=== PATIENT | male | born 1940 | race Caucasian/White ===

== ENCOUNTER 2017-10-09 10:45 | Emergency (ER) | payer OTHER ==
[~2017-10-09] VITALS: Ht 170.2 cm; Wt 84.0 kg
[2017-10-09 10:46] VITALS: BP 136/71; PULSE 97; RESP 18; TEMP 98.2; O2SAT 98
[2017-10-09] MEDS ORDERED: METF500T PO (11:07)
[2017-10-09] MEDS ORDERED: OMEP20TA93 PO (11:07)
[2017-10-09] MEDS ORDERED: LOVA20TA PO (11:07)
[2017-10-09] MEDS ORDERED: ASPI81CH6 CHEW (11:07)
[2017-10-09] MEDS ORDERED: CARV6.252 PO (11:07)
[2017-10-09] MEDS ORDERED: LISI10TA3 PO (11:07)
[2017-10-09] MEDS ORDERED: DONE10TA7 PO (11:07)
[2017-10-09] MEDS ORDERED: CLAR10CA3 PO (11:07)
[2017-10-09] MEDS ORDERED: GLIM2TAB PO (11:07)
--- NOTE | 2017-10-09 11:11 | PD ---
HPI Chief Complaint: Cold / Flu Symptoms Time Seen by Provider: 10:51 Travel History International Travel<30 days: No Contact w/Intl Traveler<30days: No Traveled to known affect area: No History of Present Illness HPI The patient is a 77-year-old male who presents emergency department for cough and cold symptoms of 3 days' duration. The patient notes nasal congestion, sore throat, and productive cough producing white sputum, nausea, vomiting, and diarrhea. He also complains of lower intermittent abdominal cramping. The patient called his primary physician earlier today, Dr. Bustamante, was referred to the emergency department by their nurse. He is unsure if he has had a fever, does note intermittent chills and sweats. The patient recently finished azithromycin for an upper respiratory infection. He denies any chest pain. The patient is a somewhat limited historian with a history of dementia, the does provide some of the history. PFSH Past Medical History Cerebrovascular Accident: Yes Dementia: Yes Diabetes: Yes Patient Takes Glucophage: Yes GERD: Yes Hypertension: Yes Triglycerides - High: Yes Past Surgical History Narrative Surgical right inguinal hernia repair Tonsillectomy: Yes Other Surgery: Yes (prostate, hernia, penile implant) Social History Alcohol Use: No Tobacco Use: No Substance Use: No Allergies-Medications (Allergen,Severity, Reaction): Coded Allergies: Penicillins (Verified Allergy, Intermediate, 10/09/17) Reported Meds & Prescriptions Reported Meds & Active Scripts Active Reported Donepezil 10 Mg Tab 10 Mg PO HS Metformin (Metformin HCl) 500 Mg Tab 500 Mg PO BIDPC Omeprazole 20 Mg Tab 20 Mg PO DAILY Glimepiride 2 Mg Tab 2 Mg PO DAILY Take with breakfast or first main meal Lisinopril 10 Mg Tab 10 Mg PO DAILY Claritin (Loratadine) 10 Mg Cap 10 Mg PO DAILY Carvedilol 6.25 Mg Tab 6.25 Mg PO BID Aspirin Low Dose (Aspirin) 81 Mg Chew 81 Mg CHEW DAILY Lovastatin 20 Mg Tab 20 Mg PO DAILY Review of Systems Except as stated in HPI: all other systems reviewed are Neg General / Constitutional: Positive: Chills, No: Fever HENT: Positive: Sore Throat, Congestion Cardiovascular: No: Chest Pain or Discomfort Respiratory: Positive: Cough, No: Shortness of Breath Gastrointestinal: Positive: Nausea, Vomiting, Diarrhea, Abdominal Pain Genitourinary: No: Dysuria Musculoskeletal: No: Myalgias Physical Exam Narrative GENERAL: Awake, alert, pleasant 77-year-old male who appears his stated age and is in no acute respiratory distress. SKIN: Focused skin assessment warm/dry. HEAD: Atraumatic. Normocephalic. EYES: Pupils equal and round. No scleral icterus. No injection or drainage. ENT: No nasal bleeding or discharge. Mucous membranes pink and moist. NECK: Trachea midline. No JVD. CARDIOVASCULAR: Regular rate and rhythm. No murmur appreciated. RESPIRATORY: No accessory muscle use. Few scattered wheezes. GASTROINTESTINAL: Abdomen soft, minimal lower abdominal tenderness. No guarding or rigidity. MUSCULOSKELETAL: No obvious deformities. No clubbing. No cyanosis. No edema. NEUROLOGICAL: Awake and alert. No obvious cranial nerve deficits. Motor grossly within normal limits. Normal speech. PSYCHIATRIC: Appropriate mood and affect; insight and judgment normal. Data Data Last Documented VS Vital Signs Date Time Temp Pulse Resp B/P (MAP) Pulse Ox O2 Delivery O2 Flow Rate FiO2 10/09/17 10:46 98.2 97 18 136/71 (92) 98 Room Air Orders Orders Complete Blood Count With Diff (10/09/17 10:59) Comprehensive Metabolic Panel (10/09/17 10:59) Lactic Acid (10/09/17 10:59) Chest, Single Ap (10/09/17 ) Influenzae A/B Antigen (10/09/17 10:59) Urinalysis - C+S If Indicated (10/09/17 10:59) Ondansetron Inj (Zofran Inj) (10/09/17 11:15) Sodium Chlorid 0.9% 500 Ml Inj (Ns 500 M (10/09/17 11:15) Labs Laboratory Tests Test 10/09/17 11:20 10/09/17 11:30 White Blood Count 10.3 TH/MM3 Red Blood Count 4.38 MIL/MM3 Hemoglobin 13.0 GM/DL Hematocrit 38.0 % Mean Corpuscular Volume 86.7 FL Mean Corpuscular Hemoglobin 29.6 PG Mean Corpuscular Hemoglobin Concent 34.2 % Red Cell Distribution Width 13.8 % Platelet Count 169 TH/MM3 Mean Platelet Volume 8.8 FL Neutrophils (%) (Auto) 89.7 % Lymphocytes (%) (Auto) 1.4 % Monocytes (%) (Auto) 5.3 % Eosinophils (%) (Auto) 3.4 % Basophils (%) (Auto) 0.2 % Neutrophils # (Auto) 9.2 TH/MM3 Lymphocytes # (Auto) 0.1 TH/MM3 Monocytes # (Auto) 0.5 TH/MM3 Eosinophils # (Auto) 0.4 TH/MM3 Basophils # (Auto) 0.0 TH/MM3 CBC Comment DIFF FINAL Differential Comment Blood Urea Nitrogen 38 MG/DL Creatinine 2.78 MG/DL Random Glucose 241 MG/DL Total Protein 7.5 GM/DL Albumin 3.9 GM/DL Calcium Level 9.2 MG/DL Alkaline Phosphatase 109 U/L Aspartate Amino Transf (AST/SGOT) 19 U/L Alanine Aminotransferase (ALT/SGPT) 18 U/L Total Bilirubin 0.6 MG/DL Sodium Level 137 MEQ/L Potassium Level 4.7 MEQ/L Chloride Level 103 MEQ/L Carbon Dioxide Level 26.3 MEQ/L Anion Gap 8 MEQ/L Estimat Glomerular Filtration Rate 22 ML/MIN Lactic Acid Level 1.2 mmol/L Urine Color YELLOW Urine Turbidity CLEAR Urine pH 5.0 Urine Specific [place] 1.014 Urine Protein 30 mg/dL Urine Glucose (UA) 300 mg/dL Urine Ketones NEG mg/dL Urine Occult Blood NEG Urine Nitrite NEG Urine Bilirubin NEG Urine Urobilinogen LESS THAN 2.0 MG/DL Urine Leukocyte Esterase NEG Urine RBC 1 /hpf Urine WBC 1 /hpf Urine Squamous Epithelial Cells <1 /hpf Microscopic Urinalysis Comment CULT NOT INDICATED MDM Medical Decision Making Medical Screen Exam Complete: Yes Emergency Medical Condition: Yes Medical Record Reviewed: Yes Interpretation(s) Last Impressions Chest X-Ray 10/09/17 0000 Signed Impressions: Service Date/Time: Monday, October 09, 2017 11:31 - CONCLUSION: No focal infiltrates seen. Frantz Duggan MD Laboratory Tests Test 10/09/17 11:20 10/09/17 11:30 White Blood Count 10.3 TH/MM3 Red Blood Count 4.38 MIL/MM3 Hemoglobin 13.0 GM/DL Hematocrit 38.0 % Mean Corpuscular Volume 86.7 FL Mean Corpuscular Hemoglobin 29.6 PG Mean Corpuscular Hemoglobin Concent 34.2 % Red Cell Distribution Width 13.8 % Platelet Count 169 TH/MM3 Mean Platelet Volume 8.8 FL Neutrophils (%) (Auto) 89.7 % Lymphocytes (%) (Auto) 1.4 % Monocytes (%) (Auto) 5.3 % Eosinophils (%) (Auto) 3.4 % Basophils (%) (Auto) 0.2 % Neutrophils # (Auto) 9.2 TH/MM3 Lymphocytes # (Auto) 0.1 TH/MM3 Monocytes # (Auto) 0.5 TH/MM3 Eosinophils # (Auto) 0.4 TH/MM3 Basophils # (Auto) 0.0 TH/MM3 CBC Comment DIFF FINAL Differential Comment Blood Urea Nitrogen 38 MG/DL Creatinine 2.78 MG/DL Random Glucose 241 MG/DL Total Protein 7.5 GM/DL Albumin 3.9 GM/DL Calcium Level 9.2 MG/DL Alkaline Phosphatase 109 U/L Aspartate Amino Transf (AST/SGOT) 19 U/L Alanine Aminotransferase (ALT/SGPT) 18 U/L Total Bilirubin 0.6 MG/DL Sodium Level 137 MEQ/L Potassium Level 4.7 MEQ/L Chloride Level 103 MEQ/L Carbon Dioxide Level 26.3 MEQ/L Anion Gap 8 MEQ/L Estimat Glomerular Filtration Rate 22 ML/MIN Lactic Acid Level 1.2 mmol/L Urine Color YELLOW Urine Turbidity CLEAR Urine pH 5.0 Urine Specific [place] 1.014 Urine Protein 30 mg/dL Urine Glucose (UA) 300 mg/dL Urine Ketones NEG mg/dL Urine Occult Blood NEG Urine Nitrite NEG Urine Bilirubin NEG Urine Urobilinogen LESS THAN 2.0 MG/DL Urine Leukocyte Esterase NEG Urine RBC 1 /hpf Urine WBC 1 /hpf Urine Squamous Epithelial Cells <1 /hpf Microscopic Urinalysis Comment CULT NOT INDICATED Differential Diagnosis Differential diagnosis includes influenza, viral syndrome, pneumonia, bronchitis , gastroenteritis, diverticulitis, pyelonephritis, complicated UTI, dehydration , electrolyte abnormality. Narrative Course IV was established, labs are drawn and sent, and the patient was placed on cardiac telemetry monitoring and continuous pulse oximetry monitoring. The patient received Zofran and 500 cc normal saline. Influenza screen was sent to lab. Chest x-ray was obtained. Chest x-rays negative. Influenza screen is negative. White count is normal. Creatinine was 2.78, do not have a baseline for the patient's creatinine. I discussed the creatinine with the he does state the patient has a history of renal failure, does not know the baseline creatinine. Her nausea did improve, the patient was given a by mouth challenge with warren kar and another 500 cc bolus. Patient tolerates warren kar he will be discharged home. Diagnosis Primary Impression: Gastroenteritis Additional Impression: Chronic kidney disease Qualified Codes: N18.9 - Chronic kidney disease, unspecified Patient Instructions: General Instructions Additional Instructions: Please provide the patient a copy of his labs at discharge. Clear liquid diet and advance as tolerated. Follow-up with her primary physician. Return if symptoms worsen or progress. Med/Other Pt SpecificInfo: Prescription(s) given Scripts Ondansetron Odt (Zofran Odt) 4 Mg Tab 4 MG SL Q6HR Y for Nausea/Vomiting, #10 TAB 0 Refills Prov: Rony Gregory MD 10/09/17 Disposition: DISCHARGE HOME Condition: Stable Rony Gregory MD Oct 09, 2017 11:11
[2017-10-09] MEDS ORDERED: SODIUM CHLORID 0.9% 500 ML INJ 500 ML IV ONE ×2 (11:15→13:15)
[2017-10-09] MEDS ORDERED: ONDANSETRON HCL 4 MG/2 ML VIAL IV PUSH ONE (11:15)
[2017-10-09 11:38] LABS: AUTOMATED NEUTROPHIL # 9.2 TH/MM3 (1.8-7.7); BASOPHIL % 0.2 % (0.0-2.0); EOSINOPHIL # 0.4 TH/MM3 (0-0.4); EOSINOPHIL % 3.4 % (0.0-4.0); LYMPH % 1.4 % (9.0-44.0); LYMPHOCYTE # 0.1 TH/MM3 (1.0-4.8); MEAN CELL VOLUME 86.7 FL (80.0-100.0); MEAN CORPUSCULAR HEMOGLOBIN 29.6 PG (27.0-34.0); MEAN CORPUSCULAR HGB CONC 34.2 % (32.0-36.0); MEAN PLATELET VOLUME 8.8 FL (7.0-11.0); MONO % 5.3 % (0.0-8.0); MONOCYTE # 0.5 TH/MM3 (0-0.9); NEUT % 89.7 % (16.0-70.0); PLATELET COUNT 169 TH/MM3 (150-450); RED BLOOD COUNT 4.38 MIL/MM3 (4.50-5.90); RED CELL DISTRIBUTION WIDTH 13.8 % (11.6-17.2); WHITE BLOOD COUNT 10.3 TH/MM3 (4.0-11.0)
[2017-10-09 11:52] LABS: BILIRUBIN, URINE NEG (NEG); BLOOD, URINE NEG (NEG); GLUCOSE,URINE 300 mg/dL (NEG); KETONE, URINE NEG (NEG); NITRITE,URINE NEG (NEG); SQUAMOUS EPITHELIAL CELL URINE <1 /hpf (0-5); URINE COLOR YELLOW (YELLW/STRAW); URINE LEUKOCYTE ESTERASE NEG (NEG)
[2017-10-09 12:02] LABS: ALBUMIN 3.9 GM/DL (3.4-5.0); AST (GOT) 19 U/L (15-37); BICARBONATE 26.3 MEQ/L (21.0-32.0); BLOOD UREA NITROGEN 38 MG/DL (7-18); CALCIUM 9.2 MG/DL (8.5-10.1); CHLORIDE 103 MEQ/L (98-107); CREATININE 2.78 MG/DL (0.60-1.30); GLOMERULAR FILTRATION RATE 22 ML/MIN (>89); GLUCOSE,RANDOM 241 MG/DL (74-106); SODIUM (NA) 137 MEQ/L (136-145)
[2017-10-09 12:05] LABS: ALKALINE PHOSPHATASE 109 U/L (45-117); ALT (GPT) 18 U/L (12-78); TOTAL BILIRUBIN ADULT 0.6 MG/DL (0.2-1.0); TOTAL PROTEIN 7.5 GM/DL (6.4-8.2)
--- NOTE | 2017-10-09 12:15 | RADRPT ---
EXAM DATE/TIME: 10/09/2017 11:31 [facility] COMPARISON: No previous studies available for comparison. INDICATIONS : Cough and flu like symptoms. MEDICAL HISTORY : Hypertension. Diabetes mellitus type II. CVA. Dementia. SURGICAL HISTORY : None. ENCOUNTER: Initial ACUITY: 3 days PAIN SCORE: 0/10 LOCATION: Bilateral chest FINDINGS: A single view of the chest demonstrates the lungs to be symmetrically aerated without evidence of mas s, infiltrate or effusion. The cardiomediastinal contours are unremarkable. Osseous structures are intact. CONCLUSION: No focal infiltrates seen. Frantz Duggan MD on October 09, 2017 at 12:12 Board Certified Radiologist. This report was verified electronically.
[2017-10-09] MEDS ORDERED: ZOFR4TAB3 SL (13:01)
== END 2017-10-09 13:48 | disposition home or self-care (01) ==
LOC: NEPD 10:45
DX: K52.9 Noninfective gastroenteritis and colitis, unspecified (principal); I12.9 Hypertensive chronic kidney disease with stage 1 through stage 4 chronic kidney disease, or unspecified chronic kidney disease; E11.9 Type 2 diabetes mellitus without complications; F03.90 Unspecified dementia, unspecified severity, without behavioral disturbance, psychotic disturbance, mood disturbance, and anxiety; K21.9 Gastro-esophageal reflux disease without esophagitis; Z86.73 Personal history of transient ischemic attack (TIA), and cerebral infarction without residual deficits
CPT/HCPCS: 71045; 80053; 81001; 83605; 85025; 87804; 96361; 96374; 99284; J2405; J7040